=== PATIENT | male | born 1985 | race Caucasian/White ===

== ENCOUNTER → 2020-01-31 | Outpatient (CLI) | payer OTHER ==
[2020-01-31 20:01] LABS: African American GFR (CKD) 114.1 (60.0-200.0); Albumin 4.9 g/dL (3.80-4.90); Albumin/Globulin Ratio 1.88 (1.60-3.17); Anion Gap 10.8 mmol/L (4.00-12.00); Calcium 9.4 mg/dL (8.7-10.3); Carbon Dioxide 26.2 mmol/L (21.6-31.8); Globulin 2.6 g/dL (1.6-3.3); Non-African American GFR(CKD) 98.5 (60.0-200.0); Total Bilirubin 0.4 mg/dL (0.2-1.2); Total Protein 7.5 g/dL (6.2-8.2)
[2020-01-31 20:57] LABS: Hepatitis A Antibody IgM Non-Reactive (Non-Reactive); Hepatitis B Surface Antigen Non-Reactive (Non-Reactive); Hepatitis C IgG Antibody Reactive (Non-Reactive)
[2020-01-31 20:58] LABS: Hepatitis B Core IgM Non-Reactive (Non-Reactive)
== END | disposition home or self-care (01) ==
LOC: LABWHC1 10:52
PROVIDERS: ATTEND Internal Medicine
DX: R94.5 Abnormal results of liver function studies (principal); Z20.5 Contact with and (suspected) exposure to viral hepatitis; Z86.19 Personal history of other infectious and parasitic diseases
CPT/HCPCS: 36415; 80053; 80074

== ENCOUNTER → 2020-02-27 | Outpatient (CLI) | payer OTHER ==
[2020-02-27 11:53] LABS: HCT 46.4 % (39.0-53.0); HGB 15.2 gm/dL (13.0-17.5); MCH 31.6 pg (25.0-35.0); MCHC 32.8 g/dL (31.0-37.0); MCV 96.1 fL (80.0-100.0); Mean Platelet Volume 7.4; Platelet Count 235 k/uL (150-450); RBC 4.83 m/uL (4.30-5.90); RDW 12.5 % (11.5-15.5); WBC 10.3 k/uL (3.8-10.6)
[2020-02-27 20:16] LABS: INR 0.96 (0.90-1.11); Prothrombin Time 10.3 sec (9.9-11.9)
== END | disposition home or self-care (01) ==
LOC: LABWHC1 09:31
PROVIDERS: ATTEND Physician Assistant
DX: R74.8 Abnormal levels of other serum enzymes (principal); Z86.19 Personal history of other infectious and parasitic diseases
CPT/HCPCS: 36415; 85027; 85610; 87522

== ENCOUNTER 2020-03-22 18:23 | Emergency (ER) | payer OTHER ==
[2020-03-22 18:29] VITALS: BP 163/102; PULSE 90; RESP 18; TEMP 98
[2020-03-22] MEDS ORDERED: PROPARACAINE 0.5% OPHTH DROPS 15 ML BTL RIGHT EYE STA (18:44)
[2020-03-22] MEDS ORDERED: FLUORESCEIN STRIPS 1 MG STRIP RIGHT EYE ONE (18:44)
--- NOTE | 2020-03-22 18:47 | ED ---
General Adult HPI - General Chief complaint: Eye Problems Stated complaint: bee sting rt eye Time Seen by Provider: 03/22/20 18:37 Source: patient Mode of arrival: ambulatory Limitations: no limitations - History of Present Illness Initial comments: Dictation was produced using [employer] dictation software. please excuse any grammatical, word or spelling errors. This patient was cared for during a federal and state declared state of emergency secondary to Covid 19 Chief Complaint: 34-year-old male presents with right eyelid pain History of Present Illness: 34-year-old male approximately 30-40 minutes prior to arrival he was stung by a swarm of several bees. Reports that he got mainly style on his back and his gluteal area. But he also reports that he got stung on the right lower eyelid. He reports some mild swelling and pain to the right lower eyelid. He leaves that the stinger is still in place. Denies any vision changes. He does complain of some mild eye watering. He has no ALLERGIES. Is not ALLERGIC to bee stings. The ROS documented in this emergency department record has been reviewed and confirmed by me. Those systems with pertinent positive or negative responses have been documented in the HPI. All other systems are other negative and/or noncontributory. PHYSICAL EXAM: General Impression: Alert and oriented x3, not in acute distress HEENT: Normocephalic atraumatic, extra-ocular movements intact, pupils equal and reactive to light bilaterally, mucous membranes moist. Eye: Lacrimation to the right eye with mild conjunctivitis. No bee stinger identified on gross exam Cardiovascular: Heart regular rate and rhythm Chest: Able to complete full sentences, no retractions, no tachypnea Abdomen: abdomen soft, non-tender, non-distended, no organomegaly Musculoskeletal: Pulses present and equal in all extremities, no peripheral edema Motor: no focal deficits noted Neurological: CN II-XII grossly intact, no focal motor or sensory deficits noted Skin: Intact with no visualized rashes Psych: Normal affect and mood ED course: 34-year-old male presents with chief complaint of right lower eyelid pain signs upon arrival are within acceptable limits. Flushing test did not reveal any corneal injuries. Patient denies any visual changes. Slit-lamp was used to evaluate patient's lower eyelid without any obvious abnormalities. Patient reports drag improvement of symptoms while in the emergency room. Patient was offered symptomatically for however he rather just go home and wait for symptoms to go away. Patient clear for discharge. - Related Data Allergies Allergy/AdvReac Type Severity Reaction Status Date / Time No Known Allergies Allergy Verified 03/22/20 18:26 Review of Systems ROS Statement: Those systems with pertinent positive or pertinent negative responses have been documented in the HPI. ROS Other: All systems not noted in ROS Statement are negative. Past Medical History Past Medical History: No Reported History History of Any Multi-Drug Resistant Organisms: None Reported Past Surgical History: Orthopedic Surgery Additional Past Surgical History / Comment(s): R wrist Past Psychological History: Anxiety, Depression Smoking Status: Current every day smoker Past Alcohol Use History: Occasional Past Drug Use History: Marijuana General Exam Limitations: no limitations Course Vital Signs 03/22/20 18:26 Temperature 98 F Pulse Rate 90 Respiratory 18 Rate Blood Pressure 163/102 O2 Sat by Pulse 97 Oximetry Disposition Clinical Impression: Bee sting Disposition: HOME SELF-CARE Condition: Good Instructions (If sedation given, give patient instructions): Insect Bite or Sting (ED) Is patient prescribed a controlled substance at d/c from ED?: No Referrals: Luann Maya MD [Primary Care Provider] - 1-2 days Time of Disposition: 19:04
== END 2020-03-22 19:20 | disposition home or self-care (01) ==
LOC: EC 18:23
DX: T63.441A Toxic effect of venom of bees, accidental (unintentional), initial encounter (principal); F17.200 Nicotine dependence, unspecified, uncomplicated
CPT/HCPCS: 99283

== ENCOUNTER 2020-10-04 10:40 | Emergency (ER) | payer OTHER ==
[2020-10-04 10:46] VITALS: BP 163/105; PULSE 77; RESP 16; TEMP 98.9
[2020-10-04] MEDS ORDERED: MORPHINE SULFATE 2 MG/ML SYRINGE IVP ONE (11:11)
[2020-10-04] MEDS ORDERED: KETOROLAC 15 MG/ML 1 ML VIAL IVP STA (11:12)
[2020-10-04] MEDS ORDERED: ACET/COD 300 MG/30 MG STARTER PACK 6 TAB BTL PO STA (11:16)
--- NOTE | 2020-10-04 11:16 | ED ---
ENT HPI - General Chief complaint: Dental/Oral Stated complaint: dental pain Time Seen by Provider: 10/04/20 10:47 Source: patient Mode of arrival: ambulatory Limitations: no limitations - History of Present Illness Initial comments: Patient is a 35-year-old male presenting to the emergency Department with complaints of right lower side of dental pain that increased over the past week. He states he does have a known fractured tooth on that side but it doesn't usually give him pain. He states he did call his dentist, he has an appointment for October 14. Patient denies any fever or chills, no nausea or vomiting. Patient states he does admit to drinking a little bit today secondary to decrease the pain. He denies any other drug use. He did take an ibuprofen this morning. He has no further complaints at this time. Upon arrival to the ER he is afebrile. - Related Data Previous Rx's Medication Instructions Recorded Penicillin V Potassium [Pen Vee K] 500 mg PO QID 7 Days #28 tablet 10/04/20 Allergies Allergy/AdvReac Type Severity Reaction Status Date / Time No Known Allergies Allergy Verified 10/04/20 10:44 Review of Systems ROS Statement: Those systems with pertinent positive or pertinent negative responses have been documented in the HPI. ROS Other: All systems not noted in ROS Statement are negative. Past Medical History Past Medical History: No Reported History History of Any Multi-Drug Resistant Organisms: None Reported Past Surgical History: Orthopedic Surgery Additional Past Surgical History / Comment(s): R wrist Past Psychological History: Anxiety, Depression Smoking Status: Current every day smoker Past Alcohol Use History: Occasional Past Drug Use History: Marijuana General Exam - General Exam Comments Initial Comments: GENERAL: Patient is well-developed and well-nourished. Patient is nontoxic and in mild distress. HEAD: Atraumatic, normocephalic. EYES: Pupils equal round and reactive to light, extraocular movements intact, sclera anicteric, conjunctiva are normal. Eyelids were unremarkable. ENT: TMs normal, nares patent, oropharynx clear without exudates. Moist mucous membranes. Patient has numerous dental decay and cavities, he does have a fractured tooth on the right lower side #31, no visible dental abscess seen, no facial swelling. NECK: Normal range of motion, supple without lymphadenopathy or JVD. LUNGS: Unlabored respirations. Breath sounds clear to auscultation bilaterally and equal. No wheezes rales or rhonchi. HEART: Regular rate and rhythm without murmurs, rubs or gallops. ABDOMEN: Soft, nontender, normoactive bowel sounds. No guarding, no rebound. No masses appreciated. : Deferred MUSCULOSKELETAL: Normal extremities with adequate strength and normal range of motion, no pitting or edema. No clubbing or cyanosis. NEUROLOGICAL: Patient is alert and oriented x 3. Motor and sensory are also intact. Cranial nerves II through XII grossly intact. Symmetrical smile. Normal speech, normal gait. PSYCH: Normal mood, normal affect. SKIN: Warm, Dry, normal turgor, no rashes or lesions noted. Limitations: no limitations Course Vital Signs 10/04/20 10:45 Temperature 98.9 F Pulse Rate 77 Respiratory 16 Rate Blood Pressure 163/105 O2 Sat by Pulse 100 Oximetry Medical Decision Making - Medical Decision Making Patient is a 35-year-old male right lower dental pain increasing over the past week. He is afebrile, no dental abscess seen, no facial swelling. Patient will be given pain control the ER, started on penicillin for possible dental abscess. He is to follow-up with his dentist. Patient is stable for discharge. Patient is in agreement with this plan of care. Return parameters were discussed with the patient and they verbalized understanding. Case discussed with Dr. cortez. Disposition Clinical Impression: Fracture of tooth, Toothache, Dental caries Disposition: HOME SELF-CARE Condition: Stable Instructions (If sedation given, give patient instructions): Dental Abscess (ED) Additional Instructions: Please return to the Emergency Department if symptoms worsen or any other heavenly rns. Take antibiotics as prescribed. Alternating between Tylenol and Motrin for pain control, may take Tylenol #3 for more severe pain. Follow up with your dentist. Prescriptions: Penicillin V Potassium [Pen Vee K] 500 mg PO QID 7 Days #28 tablet Is patient prescribed a controlled substance at d/c from ED?: No Referrals: Luann Maya MD [Primary Care Provider] - 1-2 days
== END 2020-10-04 11:34 | disposition home or self-care (01) ==
LOC: EC 10:40
DX: S02.5XXA Fracture of tooth (traumatic), initial encounter for closed fracture (principal); K02.9 Dental caries, unspecified; F17.200 Nicotine dependence, unspecified, uncomplicated; X58.XXXA Exposure to other specified factors, initial encounter
CPT/HCPCS: 96374; 96375; 99283